=== PATIENT | female | born 1935 | race Caucasian/White ===

== ENCOUNTER 2019-02-05 11:06 | Emergency (ER) | payer MEDICARE, OTHER ==
[~2019-02-05] VITALS: Ht 157.5 cm; Wt 49.9 kg
--- NOTE | 2019-02-05 11:13 | ED Fall/Injury ---
General Stated Complaint: ED FS Source: EMS History of Present Illness Date Seen by Provider: Feb 05, 2019 Time Seen by Provider: 11:00 Initial Comments 84-year-old female brought in by EMS. Patient was going to the bathroom. Patient has a walker when she hit a bridge or something in the floor. She then fell. Patient was complaining of pain in but EMS was unable to localize it For maybe the left posterior hip. Patient was given 100 of fentanyl in route. Patient does not want to communicate with me. Patient possibly her head. She is unknown if she is on any blood thinners. did not know the meds and states he will bring them out but he had some areas to run before he came to the ER. No other information available at this time Occurred: just prior to arrival Allergies and Home Medications Patient Home Medication List Home Medication List Reviewed: Yes Review of Systems Review of Systems Constitutional: no symptoms reported, see HPI Unable to obtain any further information outside a EMS review of systems since patient currently not communicating Past Lrdlyyh-Ynefsc-Kspiby Hx Past Med/Social Hx: Reviewed Nursing Past Med/Soc Hx Physical Exam Vital Signs Vital Signs - First Documented 02/05/19 11:10 Temp 98.0 Pulse 90 Resp 18 B/P (MAP) 143/65 (91) Pulse Ox 97 Capillary Refill : Height, Weight, BMI Height: '" Weight: lbs. oz. kg; BMI Method: General Appearance: no apparent distress HEENT: PERRL/EOMI Neck: non-tender, full range of motion Cardiovascular: normal peripheral pulses, regular rate, rhythm Respiratory: lungs clear, normal breath sounds Gastrointestinal: non tender, soft Pelvic: other (Tender to palpation left posterior hip) Back: no CVA tenderness, no vertebral tenderness; No decreased range of motion Extremities: normal range of motion Skin: normal color, warm/dry Progress/Results/Core Measures Results/Orders My Orders Orders - LUKE AMANDA DO Ct Head/Cervical Spine Wo (02/05/19 11:13) Pelvis/Coleman Hips 2 View (02/05/19 11:13) Vital Signs/I&O 02/05/19 11:10 Temp 98.0 Pulse 90 Resp 18 B/P (MAP) 143/65 (91) Pulse Ox 97 Progress Progress Note : Progress Note Patient's arrived and reports patient's at her baseline. She did fall around 4:30 this morning and went to bed and was Kendal without difficulty. Patient reports he synergist to be evaluated to make sure her hip was not broken. Patient had negative CT head neck and negative pelvis hip x-rays. Patient will be discharged back home in stable condition. Diagnostic Imaging Diagonstic Imaging: Xray, CT Plain Films/CT/US/NM/MRI: pelvis, head Comments No acute findings on imaging Departure Impression Primary Impression: Contusion of hip, left Qualified Codes: S70.02XA - Contusion of left hip, initial encounter Additional Impression: Fall from other slipping, tripping, or stumbling Disposition: 01 HOME, SELF-CARE Condition: Stable Departure-Patient Inst. Patient Instructions: Contusion (DC), Getting Up From a Fall LUKE AMANDA DO Feb 05, 2019 11:13
--- NOTE | 2019-02-05 11:56 | Diagnostic Imaging Report ---
PATIENT HISTORY: Fall, pelvis and bilateral hip pain. TECHNIQUE: Frontal view of the pelvis. Frontal and lateral views of the bilateral hips. COMPARISON: None. FINDINGS: There is diffuse osteopenia. There is mild prominence at the lateral left femoral head which is thought to be due to degenerative change or an osteophyte. No definite fracture is seen. Alignment appears normal. The femoral head is well-seated in the acetabula bilaterally. Phleboliths are noted in the pelvis. IMPRESSION: 1. Diffuse osteopenia with no acute fracture seen in the pelvis or bilateral hips. If there is persistent clinical concern for fracture, consider cross-sectional imaging. Dictated by: Dictated on workstation # [id number]
--- NOTE | 2019-02-05 12:49 | Diagnostic Imaging Report ---
PROCEDURE: CT head and CT cervical spine without contrast. TECHNIQUE: Multiple contiguous axial images were obtained through the brain and cervical spine without the use of intravenous contrast. Sagittal and coronal reformations through the cervical spine were then performed. Auto Exposure Controls were utilized during the CT exam to meet ALARA standards for radiation dose reduction. INDICATION: Fall, head and neck pain. COMPARISON: None available. FINDINGS: CT HEAD: No hyperdense hemorrhage or space-occupying mass. No hydrocephalus or midline shift. Bolden-white matter differentiation is preserved. Patchy periventricular and deep white matter hypointensity most compatible with chronic microvascular ischemic disease. Global atrophy is present. No skull fracture. Mastoid air cells are clear. Paranasal sinuses are also clear. Orbits are normal. CT CERVICAL SPINE: No acute fracture or traumatic malalignment in the cervical spine. No high-grade spinal stenosis. Probable subpleural scarring in the lungs. Visualized thyroid is normal. Calcified plaquing of the carotid bulb. No cervical lymphadenopathy. IMPRESSION: 1. No acute intracranial process or skull fracture. 2. No fracture or traumatic malalignment in the cervical spine. Dictated by: Dictated on workstation # [id number]
--- NOTE | 2019-02-05 13:00 | NUR ---
Patient's is concerned about taking care of patient at home. Patient has been able to stand with two person assist but does complain of pain. Updated Dr Daniels who stated he would talk with the .
--- NOTE | 2019-02-05 13:05 | NUR ---
Dr Daniels states plan for patient is to discharge to home with followup with pcp to discuss fci placement. Patient already has an appointment for tomorrow with pcp.
[2019-02-05 13:06] VITALS: BP 144/69
== END 2019-02-05 13:07 | disposition home or self-care (01) ==
LOC: ER FS 11:08
DX: S70.02XA Contusion of left hip, initial encounter (principal); W01.0XXA Fall on same level from slipping, tripping and stumbling without subsequent striking against object, initial encounter
CPT/HCPCS: 70450; 72125; 73521

== ENCOUNTER → 2019-02-10 | Outpatient (CLI) | payer MEDICARE ==
--- NOTE | 2019-02-10 12:36 | Diagnostic Imaging Report ---
CLINICAL HISTORY: Fall on 02/05/2019. Followup. COMPARISON: 02/05/2019 TECHNIQUE: 5 views of the pelvis and bilateral hips. FINDINGS: No acute displaced fracture seen in the pelvis and bilateral hips. There is normal articulation of the femoral heads and acetabulum. No focal osseous lesions. Generalized osteopenia is noted. Soft tissues of the pelvis and thighs is unremarkable. IMPRESSION: No acute displaced fracture in the pelvis and bilateral hips. Generalized osteopenia. Dictated by: Dictated on workstation # [id number]
== END ==
LOC: RAD FS 11:53
PROVIDERS: ATTEND Nurse Practitioner Family
DX: M85.80 Other specified disorders of bone density and structure, unspecified site (principal); W19.XXXD Unspecified fall, subsequent encounter
CPT/HCPCS: 73521